=== PATIENT | male | born 1955 | race Caucasian/White ===

== ENCOUNTER 2019-07-20 10:56 | Emergency (ER) | payer MEDICARE, OTHER ==
--- NOTE | 2019-07-20 10:59 | ED.PDOC ---
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 Pt states he was cutting wood on his table saw when he accidentally cut his thumb across the blade. Reports deep laceration across the tip of the palmar surface of the thumb. Reports sharp severe pain to area at first but now has dulled to 4/10 severity. Bleeding controlled with pressure alone. Reports some decreased sensation to the tip of the thumb but denies any weakness or decreased ROM. Believes he just had a tetanus booster within the last month but is unsure. Denies any other injuries. Allergies/Adverse Reactions: Allergies NO KNOWN ALLERGY Allergy (Verified 07/20/19 11:07) Home Medications: Ambulatory Orders Cephalexin Monohydrate [Keflex] 500 mg PO BID 5 Days #10 cap 07/20/19 RX: Omeprazole 20 mg PO DAILY 07/20/19 Review of Systems - Review of Systems Review of Systems: 07/20/19 11:12 as per HPI All other Systems: Reviewed and Negative Family Medical History - Family History Mother Family History: Unknown Physical Exam - Physical Exam General Appearance: Alert, Comfortable, No apparent distress Eye Exam: bilateral normal Ears, Nose, Throat: hearing grossly normal, normal ENT inspection, normal pharynx Neck: non-tender, full range of motion, supple, normal inspection Respiratory: lungs clear, normal breath sounds, no respiratory distress Cardiovascular/Chest: normal peripheral pulses, regular rate, rhythm, no edema, no murmur Peripheral Pulses: radial,right: 2+, radial,left: 2+ Gastrointestinal/Abdominal: non tender, soft, no organomegaly Back Exam: normal inspection, no CVA tenderness, no vertebral tenderness Extremity: normal range of motion, non-tender Neurologic: cmo II-XII nml as tested, alert, normal mood/affect, oriented x 3, sensory deficit - decreased sensation to light touch to very tip of right thumb, otherwise intact throughout Skin Exam: normal color, warm/dry, other - approx 2 cm transverse laceration across distal palmar surface of right thumb, clean, hemostatic, deep to subcut tissue but no exposed tendons or muscle Progress - Progress Progress: 07/20/19 11:14 Right thumb laceration -consider also distal thumb fracture. Does not appear to be any tendon/ligament injury. Possibly some peripheral nerve injury. No arterial injury apparent. -obtain XR Right thumb, tetanus booster, cleanse wound copiously. If no frx, will prepare for digital nerve block and primary closure here. 07/20/19 12:15 -XR reveals no acute fractures. Pt given tetanus booster and wound closed in ED without issue. Discussed wound care and return precautions at length. Sutures out in 10-[address] on PPx Abx with Keflex 500 mg PO BID to prevent infection. -dc home in good condition, f/u closely with PCP Epi Hemphill MD Billing #[id number] Procedures - Laceration/Wound Repair Right Volar Finger Wound Length (cm): 2 Wound's Depth, Shape: superficial, irregular Wound Explored: no foreign body removed Betadine Prep?: Yes Anesthesia: 1% Lidocaine Volume Anesthetic (cc's): 4 - digital nerve block right thumb Wound Repaired With: sutures Suture Size/Type: 6:0, prolene Number of Sutures: 9 Layer Closure?: No Sterile Dressing Applied?: Yes Splint Applied?: No Sling Applied?: No Departure - Departure Clinical Impression: Laceration of thumb without complication Time of Disposition: 14:01 Disposition: Discharge to Home or Self Care Condition: Good Departure Forms: ED Discharge - Pt. Copy, Patient Portal Self Enrollment Instructions: DI for Laceration Repair -- Finger Diet: resume usual diet Prescriptions: Cephalexin Monohydrate [Keflex] 500 mg PO BID 5 Days #10 cap Home Medications: Ambulatory Orders Cephalexin Monohydrate [Keflex] 500 mg PO BID 5 Days #10 cap 07/20/19 RX: Omeprazole 20 mg PO DAILY 07/20/19 Additional Instructions: Keep wound clean and dry for first 24 hours. After that wash gently with warm soap & water twice daily and reapply topical antibiotic ointment and clean dressing. Sutures will need to come out in 10-14 days. Return if the wound becomes red, warm, swollen, or drains pus which may indicate infection. Follow up with your primary care doctor as scheduled or sooner as needed.
[2019-07-20] MEDS ORDERED: TETANUS,DIPHTHERIA,PERTUSSIS 1 EA SYG IM ONE (11:09)
[2019-07-20] MEDS ORDERED: POVIDONE IODINE 10 % 15 ML UD TOP ONE (11:10)
[2019-07-20] MEDS: LIDOCAINE 1% 10 ML VIAL INJ ONE ×2 (11:50→13:09)
--- NOTE | 2019-07-20 12:14 | RAD ---
EXAM: XR Right Fingers, 2 or More Views CLINICAL HISTORY: deep laceration tip of right thumb TECHNIQUE: Frontal, lateral views of the right thumb. COMPARISON: No relevant prior studies available. FINDINGS: Bones/joints: Unremarkable. No acute fracture. No dislocation. Soft tissues: Unremarkable. No radiopaque foreign body. IMPRESSION: No abnormality noted. Electronically signed by: Alissa Munoz MD 07/20/2019 12:12 PM [employer]
[2019-07-20] MEDS ORDERED: CHLORHEXIDINE GLUCONATE 4 % 15 ML UD TOP ONE (13:37)
[2019-07-20 14:26] VITALS: BP 132/85; TEMP 97.3; O2SAT 99
== END 2019-07-20 14:10 | disposition home or self-care (01) ==
LOC: ER 10:56
DX: S61.011A Laceration without foreign body of right thumb without damage to nail, initial encounter (principal); W31.2XXA Contact with powered woodworking and forming machines, initial encounter; Y92.009 Unspecified place in unspecified non-institutional (private) residence as the place of occurrence of the external cause; Y93.89 Activity, other specified